=== PATIENT | female | born 1970 | race Asian ===

== ENCOUNTER 2019-09-29 05:42 | Emergency (ER) | payer MEDICAID, OTHER ==
[~2019-09-29] VITALS: Ht 160 cm; Wt 72.7 kg
[2019-09-29] MEDS ORDERED: LISI-662 PO (05:59)
[2019-09-29] MEDS ORDERED: AMLO10TA7 PO (05:59)
[2019-09-29] MEDS ORDERED: CARV12 PO (05:59)
[2019-09-29] MEDS ORDERED: SPIR25 PO (05:59)
[2019-09-29] MEDS ORDERED: GuaiFENesin [SUGAR-FREE] 200 MG/10 ML SOLUTION UDCUP PO ONE (06:45)
[2019-09-29] MEDS ORDERED: ALBUTEROL SULFATE HFA 90 MCG/PUFF 8 GM INHALER IH ONE (06:45)
[2019-09-29] MEDS ORDERED: PredniSONE 20 MG TABLET PO ONE (06:45)
[2019-09-29 08:01] VITALS: BP 167/105
== END 2019-09-29 08:21 | disposition home or self-care (01) ==
LOC: EMS 05:42
DX: J45.909 Unspecified asthma, uncomplicated (principal); M54.9 Dorsalgia, unspecified; E78.00 Pure hypercholesterolemia, unspecified; I10 Essential (primary) hypertension; F17.210 Nicotine dependence, cigarettes, uncomplicated; Z90.49 Acquired absence of other specified parts of digestive tract
CPT/HCPCS: 71046; 81002; 94640; 99283; J7512; J3535

== ENCOUNTER 2023-02-23 10:28 | Inpatient (IN) | payer OTHER ==
[~2023-02-23] VITALS: Ht 157.5 cm; Wt 75.1 kg
[~2023-02-23 10:28] MED LIST: AMLO-258 PO; ASPI325T87 PO; ATOR40TA71 PO; CARV12.530 PO; DOCU100C34 PO; FERR324T23 PO; ISOS30TA92 PO; LEVE500T20 PO; LOSA-381 PO; PANT-31 PO; SPIR-37 PO
[2023-02-23] MEDS ORDERED: ATOR-2 PO (10:34)
[2023-02-23] MEDS ORDERED: CARV25TA32 PO (10:34)
[2023-02-23] MEDS ORDERED: FAMO20TA8 PO (10:34)
[2023-02-23] MEDS ORDERED: VALS320T17 PO (10:34)
[2023-02-23] MEDS ORDERED: ATEN-72 PO (10:34)
[2023-02-23] MEDS ORDERED: LATA2.5D14 OU (10:34)
[2023-02-23 12:08] LABS: BASOPHILS % (AUTO) 0.9 % (0.0-2.0); EOSINOPHILS % (AUTO) 2.4 % (1.0-6.0); HEMATOCRIT 39.2 % (36-46); HEMOGLOBIN 13.4 g/dL (12.0-16.0); LYMPHOCYTES % (AUTO) 19.8 % (22.0-44.0); MEAN CORPUSCULAR HEMOGLOBIN 30.1 pg (26.0-34.0); MEAN CORPUSCULAR HGB CONC 34.2 G/dL (31.0-37.0); MEAN CORPUSCULAR VOLUME 88 fL (80-100); MONOCYTES # (AUTO) 0.8 K/uL (0.1-1.0); MONOCYTES % (AUTO) 7.8 % (2.0-9.0); NEUTROPHILS # (AUTO) 7.1 K/uL (1.8-7.7); NEUTROPHILS % (AUTO) 69.1 % (40.0-70.0); PLATELET COUNT (AUTO) 278 K/uL (150-450); RED BLOOD CELL COUNT(AUTO) 4.44 MIL/uL (4.00-5.20); RED CELL DISTRIBUTION WIDTH 13.2 % (11.5-14.5)
[2023-02-23] MEDS ORDERED: AmLODIPine BESYLATE 10 MG TABLET PO ONE (12:15)
[2023-02-23] MEDS ORDERED: LABETALOL HCL 5 MG/ML 20 ML VIAL IVP ONE (12:15)
[2023-02-23 12:17] LABS: CREATININE 1.68 mg/dL (0.60-1.30); POTASSIUM 3.6 mmol/L (3.5-5.1)
[2023-02-23 12:21] LABS: PROTHROMBIN TIME 10.2 SEC (9.4-11.6)
[2023-02-23 12:47] LABS: ALBUMIN 3.4 g/dL (3.4-5.0); BILIRUBIN,TOTAL 0.6 mg/dL (0.1-1.0)
[2023-02-23] MEDS ORDERED: NITROGLYCERIN 2% (1 GM=INCH) OINTMENT PACKET TP ONE (13:00)
[2023-02-23] MEDS ORDERED: ASPIRIN 325 MG TABLET PO ONE (13:00)
[2023-02-23 14:39] LABS: COVID AG,FIA SOURCE NASOPHARYNGEAL
[2023-02-23 15:24] VITALS: BP 166/101; PULSE 72; RESP 18; TEMP 97.7
[2023-02-23] MEDS ORDERED: MAGNESIUM HYDROXIDE SUSPENSION 30 ML UDCUP PO PRN (17:15)
[2023-02-23] MEDS ORDERED: MORPHINE SULFATE 2 MG/ML SYRINGE IVP PRN (17:15)
[2023-02-23] MEDS ORDERED: HYDROCODONE/ACETAMINOPHEN 5-325 MG TABLET PO PRN (17:15)
[2023-02-23] MEDS ORDERED: HEPARIN SODIUM,PORCINE 5,000 UNITS/ML VIAL IVP ONE ×2 (17:15)
[2023-02-23] MEDS ORDERED: ASPIRIN 81 MG CHEWABLE TABLET PO ONE (17:15)
[2023-02-23] MEDS ORDERED: LABETALOL HCL 5 MG/ML 20 ML VIAL IVP PRN (17:15)
[2023-02-23] MEDS ORDERED: ALBUTEROL SULFATE 2.5 MG/0.5 ML NEB SOLUTION NEB PRN (17:15)
[2023-02-23] MEDS ORDERED: IPRATROPIUM BROMIDE 0.5 MG/2.5 ML NEB SOLUTION NEB PRN (17:15)
[2023-02-23] MEDS ORDERED: HEPARIN SODIUM 25000 UNITS/D5W 250 ML IV PRN (17:15)
[2023-02-23] MEDS ORDERED: HEPARIN SODIUM,PORCINE 5,000 UNITS/ML VIAL IVP PRN ×3 (17:15)
[2023-02-23] MEDS ORDERED: BISACODYL 10 MG RECTAL RECTAL SUPPOSITORY PR PRN (17:15)
[2023-02-23] MEDS ORDERED: ONDANSETRON HCL 4 MG/2 ML VIAL IVP PRN (17:15)
[2023-02-23 19:17] LABS: BASOPHILS % (AUTO) 1.4 % (0.0-2.0); HEMATOCRIT 38.6 % (36-46); HEMOGLOBIN 13.1 g/dL (12.0-16.0); LYMPHOCYTES # (AUTO) 2.8 K/uL (1.0-4.8); LYMPHOCYTES % (AUTO) 23.6 % (22.0-44.0); MEAN CORPUSCULAR HEMOGLOBIN 29.8 pg (26.0-34.0); MEAN CORPUSCULAR HGB CONC 33.9 G/dL (31.0-37.0); MEAN CORPUSCULAR VOLUME 88 fL (80-100); MONOCYTES # (AUTO) 0.8 K/uL (0.1-1.0); NEUTROPHILS # (AUTO) 7.6 K/uL (1.8-7.7); PLATELET COUNT (AUTO) 274 K/uL (150-450); RED BLOOD CELL COUNT(AUTO) 4.38 MIL/uL (4.00-5.20); RED CELL DISTRIBUTION WIDTH 13.4 % (11.5-14.5)
[2023-02-23 19:34] LABS: PROTHROMBIN TIME 10.3 SEC (9.4-11.6)
[2023-02-23 19:36] VITALS: BP 179/102; PULSE 77; RESP 20; TEMP 98.1
[2023-02-23] MEDS: HEPARIN SODIUM 25000 UNITS/D5W 250 ML IV PRN (19:51)
[2023-02-23] MEDS: DOCUSATE SODIUM 100 MG CAPSULE PO SCH (19:57)
[2023-02-23] MEDS: HydrALAZINE HCL 20 MG/ML VIAL IVP PRN (20:00)
[2023-02-23] MEDS: CARVEDILOL 12.5 MG TABLET PO SCH (20:00)
[2023-02-23] MEDS: LATANOPROST 0.005% 2.5 ML OPHTHALMIC SOLUTION OU SCH (20:32)
[2023-02-23] MEDS: FAMOTIDINE 20 MG TABLET PO SCH (20:32)
[2023-02-23] MEDS ORDERED: HydrALAZINE HCL 20 MG/ML VIAL IVP PRN (20:45)
[2023-02-23] MEDS ORDERED: CARVEDILOL 25 MG TABLET PO SCH (21:00)
[2023-02-23 22:20] VITALS: BP 141/81; PULSE 76; RESP 18
[2023-02-24] MEDS ORDERED: HEPARIN SODIUM,PORCINE 5,000 UNITS/ML VIAL SQ SCH
[2023-02-24 00:09] VITALS: BP 141/84; PULSE 74; RESP 18; TEMP 98.1
[2023-02-24 04:27] VITALS: BP 150/82; PULSE 72; RESP 16; TEMP 98.2
[2023-02-24 07:16] VITALS: BP 157/85; PULSE 71; RESP 18; TEMP 98
[2023-02-24 07:25] LABS: BASOPHILS % (AUTO) 0.7 % (0.0-2.0); EOSINOPHILS % (AUTO) 3.4 % (1.0-6.0); HEMATOCRIT 39.2 % (36-46); HEMOGLOBIN 13.2 g/dL (12.0-16.0); LYMPHOCYTES % (AUTO) 25.3 % (22.0-44.0); MEAN CORPUSCULAR HGB CONC 33.8 G/dL (31.0-37.0); MEAN CORPUSCULAR VOLUME 89 fL (80-100); MONOCYTES # (AUTO) 0.8 K/uL (0.1-1.0); MONOCYTES % (AUTO) 6.7 % (2.0-9.0); NEUTROPHILS # (AUTO) 7.7 K/uL (1.8-7.7); NEUTROPHILS % (AUTO) 63.9 % (40.0-70.0); PLATELET COUNT (AUTO) 279 K/uL (150-450); RED BLOOD CELL COUNT(AUTO) 4.41 MIL/uL (4.00-5.20); RED CELL DISTRIBUTION WIDTH 13.5 % (11.5-14.5)
[2023-02-24] MEDS: PANTOPRAZOLE SODIUM 40 MG/VIAL IVP SCH (08:59)
[2023-02-24] MEDS: SPIRONOLACTONE 25 MG TABLET PO SCH (08:59)
[2023-02-24] MEDS: ATORVASTATIN CALCIUM 40 MG TABLET PO SCH (08:59)
[2023-02-24] MEDS: DOCUSATE SODIUM 100 MG CAPSULE PO SCH ×2 (09:00→20:29)
[2023-02-24] MEDS: CARVEDILOL 12.5 MG TABLET PO SCH ×2 (09:00→20:29)
[2023-02-24] MEDS: FAMOTIDINE 20 MG TABLET PO SCH ×2 (09:00→20:29)
[2023-02-24] MEDS ORDERED: ATORVASTATIN CALCIUM 40 MG TABLET PO SCH (09:00)
[2023-02-24 11:23] VITALS: BP 166/102; PULSE 71; RESP 18; TEMP 97.7
[2023-02-24] MEDS ORDERED: METOPROLOL TARTRATE 25 MG TABLET PO ONE (12:00)
[2023-02-24] MEDS ORDERED: ASPIRIN 81 MG CHEWABLE TABLET PO ONE (12:00)
[2023-02-24 15:56] VITALS: BP 139/78; PULSE 66; RESP 19; TEMP 98.2
[2023-02-24] MEDS: HEPARIN SODIUM 25000 UNITS/D5W 250 ML IV PRN (19:09)
[2023-02-24 19:21] VITALS: BP 160/97; PULSE 73; RESP 19; TEMP 98
[2023-02-24] MEDS: LATANOPROST 0.005% 2.5 ML OPHTHALMIC SOLUTION OU SCH (20:31)
[2023-02-24] MEDS ORDERED: METOPROLOL TARTRATE 25 MG TABLET PO SCH (21:00)
[2023-02-25] VITALS (10 sets, daily range): BP systolic 134–199; BP diastolic 74–115; PULSE 66–81; RESP 16–20; TEMP 97.9–98.7
[2023-02-25] MEDS: HydrALAZINE HCL 20 MG/ML VIAL IVP PRN (04:31)
[2023-02-25] MEDS: ACETAMINOPHEN 325 MG TABLET PO PRN (09:09)
[2023-02-25] MEDS: ASPIRIN 81 MG CHEWABLE TABLET PO SCH (09:09)
[2023-02-25] MEDS: ATORVASTATIN CALCIUM 40 MG TABLET PO SCH (09:09)
[2023-02-25] MEDS: DOCUSATE SODIUM 100 MG CAPSULE PO SCH ×2 (09:10→20:26)
[2023-02-25] MEDS: FAMOTIDINE 20 MG TABLET PO SCH ×2 (09:10→20:26)
[2023-02-25] MEDS: SPIRONOLACTONE 25 MG TABLET PO SCH (09:10)
[2023-02-25] MEDS: CARVEDILOL 12.5 MG TABLET PO SCH ×2 (09:10→20:26)
[2023-02-25] MEDS: AMILoride HCL 5 MG TABLET PO SCH (09:53)
[2023-02-25] MEDS: PANTOPRAZOLE SODIUM 40 MG/VIAL IVP SCH (09:54)
[2023-02-25 12:33] LABS: BASOPHILS % (AUTO) 1.1 % (0.0-2.0); HEMATOCRIT 40.9 % (36-46); HEMOGLOBIN 13.5 g/dL (12.0-16.0); LYMPHOCYTES # (AUTO) 2.4 K/uL (1.0-4.8); LYMPHOCYTES % (AUTO) 20.3 % (22.0-44.0); MEAN CORPUSCULAR HEMOGLOBIN 29.5 pg (26.0-34.0); MEAN CORPUSCULAR VOLUME 90 fL (80-100); MONOCYTES # (AUTO) 0.9 K/uL (0.1-1.0); MONOCYTES % (AUTO) 7.4 % (2.0-9.0); NEUTROPHILS # (AUTO) 8.1 K/uL (1.8-7.7); NEUTROPHILS % (AUTO) 68.2 % (40.0-70.0); PLATELET COUNT (AUTO) 288 K/uL (150-450); RED BLOOD CELL COUNT(AUTO) 4.56 MIL/uL (4.00-5.20); RED CELL DISTRIBUTION WIDTH 13.7 % (11.5-14.5)
[2023-02-25 12:42] LABS: CALCIUM, TOTAL 9.2 mg/dL (8.8-10.5); CREATININE 1.88 mg/dL (0.60-1.30); POTASSIUM 3.7 mmol/L (3.5-5.1)
[2023-02-25 12:48] LABS: ALBUMIN 3.3 g/dL (3.4-5.0); BILIRUBIN,TOTAL 0.3 mg/dL (0.1-1.0); TOTAL PROTEIN, SERUM 6.9 g/dL (6.4-8.2)
[2023-02-25] MEDS: LATANOPROST 0.005% 2.5 ML OPHTHALMIC SOLUTION OU SCH (20:27)
[2023-02-25] MEDS: HEPARIN SODIUM 25000 UNITS/D5W 250 ML IV PRN (20:58)
[2023-02-25 21:00] LABS: APPEARANCE,URINE HAZY (CLEAR); BILIRUBIN,URINE NEGATIVE (NEGATIVE); GLUCOSE, URINE (UA) NEGATIVE (NEGATIVE); KETONES,URINE NEGATIVE (NEGATIVE); LEUKOCYTE ESTERASE ,URINE MODERATE (NEGATIVE); NITRATE,URINE NEGATIVE (NEGATIVE); OCCULT BLOOD,URINE NEGATIVE (NEGATIVE); PROTEIN,URINE 100-200,SEE CONFIRM mg/dL (NEGATIVE); SPECIFIC GRAVITIY, URINE 1.016 (1.003-1.030); UROBILINOGEN,URINE <=1.0 mg/dL (<=1.0)
[2023-02-25 21:27] LABS: BACTERIA,URINE Few /HPF (None Seen); RBC,URINE None Seen /HPF (0-2); SQUAMOUS EPITHELIAL CELL,UR Moderate /LPF (None Seen); SULFOSALICYLIC ACID,URINE 1+ (Negative)
[2023-02-26 00:33] VITALS: BP 176/100; PULSE 68; RESP 20; TEMP 98.2
[2023-02-26] MEDS: HydrALAZINE HCL 20 MG/ML VIAL IVP PRN ×2 (00:37→12:33)
[2023-02-26] MEDS: ZOLPIDEM TARTRATE 5 MG TABLET PO PRN (00:37)
[2023-02-26] MEDS: ACETAMINOPHEN 325 MG TABLET PO PRN (03:06)
[2023-02-26 03:43] VITALS: BP 133/93; PULSE 84; RESP 20; TEMP 97.9
[2023-02-26 06:09] LABS: BASOPHILS % (AUTO) 0.9 % (0.0-2.0); EOSINOPHILS % (AUTO) 3.2 % (1.0-6.0); HEMATOCRIT 43.5 % (36-46); HEMOGLOBIN 14.2 g/dL (12.0-16.0); LYMPHOCYTES # (AUTO) 3.1 K/uL (1.0-4.8); LYMPHOCYTES % (AUTO) 24.7 % (22.0-44.0); MEAN CORPUSCULAR HEMOGLOBIN 29.4 pg (26.0-34.0); MEAN CORPUSCULAR HGB CONC 32.6 G/dL (31.0-37.0); MEAN CORPUSCULAR VOLUME 90 fL (80-100); MONOCYTES # (AUTO) 1.4 K/uL (0.1-1.0); MONOCYTES % (AUTO) 10.8 % (2.0-9.0); NEUTROPHILS # (AUTO) 7.6 K/uL (1.8-7.7); NEUTROPHILS % (AUTO) 60.4 % (40.0-70.0); PLATELET COUNT (AUTO) 282 K/uL (150-450); RED BLOOD CELL COUNT(AUTO) 4.81 MIL/uL (4.00-5.20)
[2023-02-26] MEDS: HEPARIN SODIUM,PORCINE 5,000 UNITS/ML VIAL IVP PRN ×2 (07:25→21:25)
[2023-02-26 07:52] VITALS: BP 156/99; PULSE 76; RESP 18; TEMP 98
[2023-02-26] MEDS: DOCUSATE SODIUM 100 MG CAPSULE PO SCH ×2 (09:00→20:18)
[2023-02-26] MEDS: FAMOTIDINE 20 MG TABLET PO SCH ×2 (09:47→20:18)
[2023-02-26] MEDS: ATORVASTATIN CALCIUM 40 MG TABLET PO SCH (09:47)
[2023-02-26] MEDS: ASPIRIN 81 MG CHEWABLE TABLET PO SCH (09:47)
[2023-02-26] MEDS: SPIRONOLACTONE 25 MG TABLET PO SCH (09:47)
[2023-02-26] MEDS: AMILoride HCL 5 MG TABLET PO SCH (09:48)
[2023-02-26] MEDS: PANTOPRAZOLE SODIUM 40 MG/VIAL IVP SCH (09:48)
[2023-02-26] MEDS: CARVEDILOL 12.5 MG TABLET PO SCH ×2 (09:50→20:18)
[2023-02-26 12:00] VITALS: BP 178/82; PULSE 70; RESP 18; TEMP 98
[2023-02-26] MEDS ORDERED: AmLODIPine BESYLATE 10 MG TABLET PO ONE (13:30)
[2023-02-26 15:16] VITALS: BP 156/92; PULSE 72; RESP 18; TEMP 98
[2023-02-26 20:15] VITALS: BP 188/115; PULSE 76; RESP 18; TEMP 97.7
[2023-02-26] MEDS: LATANOPROST 0.005% 2.5 ML OPHTHALMIC SOLUTION OU SCH (20:18)
[2023-02-26] MEDS: HEPARIN SODIUM 25000 UNITS/D5W 250 ML IV PRN (21:31)
[2023-02-27] VITALS (8 sets, daily range): BP systolic 128–172; BP diastolic 77–101; PULSE 65–82; RESP 17–19; TEMP 97.8–98.4
[2023-02-27] MEDS: ACETAMINOPHEN 325 MG TABLET PO PRN (02:33)
[2023-02-27 04:21] LABS: BASOPHILS % (AUTO) 1.7 % (0.0-2.0); EOSINOPHILS % (AUTO) 2.1 % (1.0-6.0); HEMATOCRIT 42.1 % (36-46); LYMPHOCYTES % (AUTO) 24.9 % (22.0-44.0); MEAN CORPUSCULAR HEMOGLOBIN 29.9 pg (26.0-34.0); MEAN CORPUSCULAR HGB CONC 33.2 G/dL (31.0-37.0); MEAN CORPUSCULAR VOLUME 90 fL (80-100); MONOCYTES # (AUTO) 0.9 K/uL (0.1-1.0); NEUTROPHILS # (AUTO) 7.9 K/uL (1.8-7.7); NEUTROPHILS % (AUTO) 64.3 % (40.0-70.0); PLATELET COUNT (AUTO) 301 K/uL (150-450); RED BLOOD CELL COUNT(AUTO) 4.68 MIL/uL (4.00-5.20); RED CELL DISTRIBUTION WIDTH 13.6 % (11.5-14.5)
[2023-02-27 04:30] LABS: CALCIUM, TOTAL 9.5 mg/dL (8.8-10.5); CREATININE 2.1 mg/dL (0.60-1.30); POTASSIUM 4.7 mmol/L (3.5-5.1)
[2023-02-27] MEDS: HEPARIN SODIUM 25000 UNITS/D5W 250 ML IV PRN (05:00)
[2023-02-27] MEDS: ATORVASTATIN CALCIUM 40 MG TABLET PO SCH (08:09)
[2023-02-27] MEDS: DOCUSATE SODIUM 100 MG CAPSULE PO SCH ×2 (08:09→20:19)
[2023-02-27] MEDS: ASPIRIN 81 MG CHEWABLE TABLET PO SCH (08:09)
[2023-02-27] MEDS: PANTOPRAZOLE SODIUM 40 MG/VIAL IVP SCH (08:09)
[2023-02-27] MEDS: FAMOTIDINE 20 MG TABLET PO SCH ×2 (08:09→20:18)
[2023-02-27] MEDS: AmLODIPine BESYLATE 10 MG TABLET PO SCH (08:09)
[2023-02-27] MEDS: CARVEDILOL 12.5 MG TABLET PO SCH ×2 (08:10→20:19)
[2023-02-27] MEDS: SPIRONOLACTONE 25 MG TABLET PO SCH (08:17)
[2023-02-27 20:14] LABS: CALCIUM, TOTAL 8.8 mg/dL (8.8-10.5); CREATININE 2.31 mg/dL (0.60-1.30); POTASSIUM 4.9 mmol/L (3.5-5.1)
[2023-02-27] MEDS: LATANOPROST 0.005% 2.5 ML OPHTHALMIC SOLUTION OU SCH (20:20)
[2023-02-27] MEDS: ZOLPIDEM TARTRATE 5 MG TABLET PO PRN (22:58)
[2023-02-28 05:27] VITALS: BP 122/78; PULSE 68; RESP 18; TEMP 98.4
[2023-02-28 07:47] VITALS: BP 159/82; PULSE 72; RESP 19; TEMP 97.9
[2023-02-28] MEDS: DOCUSATE SODIUM 100 MG CAPSULE PO SCH (08:24)
[2023-02-28] MEDS: ATORVASTATIN CALCIUM 40 MG TABLET PO SCH (08:24)
[2023-02-28] MEDS: FAMOTIDINE 20 MG TABLET PO SCH (08:24)
[2023-02-28] MEDS: AmLODIPine BESYLATE 10 MG TABLET PO SCH (08:24)
[2023-02-28] MEDS: SPIRONOLACTONE 25 MG TABLET PO SCH (08:25)
[2023-02-28] MEDS: ASPIRIN 81 MG CHEWABLE TABLET PO SCH (08:25)
[2023-02-28] MEDS: PANTOPRAZOLE SODIUM 40 MG/VIAL IVP SCH (08:26)
[2023-02-28] MEDS: CARVEDILOL 12.5 MG TABLET PO SCH (08:26)
[2023-02-28 10:00] LABS: BASOPHILS % (AUTO) 0.9 % (0.0-2.0); EOSINOPHILS % (AUTO) 3.9 % (1.0-6.0); HEMATOCRIT 39.6 % (36-46); LYMPHOCYTES # (AUTO) 2.3 K/uL (1.0-4.8); LYMPHOCYTES % (AUTO) 22.4 % (22.0-44.0); MEAN CORPUSCULAR HEMOGLOBIN 29.9 pg (26.0-34.0); MEAN CORPUSCULAR HGB CONC 32.8 G/dL (31.0-37.0); MEAN CORPUSCULAR VOLUME 91 fL (80-100); MONOCYTES % (AUTO) 9.7 % (2.0-9.0); NEUTROPHILS # (AUTO) 6.4 K/uL (1.8-7.7); NEUTROPHILS % (AUTO) 63.1 % (40.0-70.0); PLATELET COUNT (AUTO) 276 K/uL (150-450); RED BLOOD CELL COUNT(AUTO) 4.35 MIL/uL (4.00-5.20); RED CELL DISTRIBUTION WIDTH 13.7 % (11.5-14.5)
[2023-02-28 11:12] LABS: CALCIUM, TOTAL 8.9 mg/dL (8.8-10.5); CREATININE 2.15 mg/dL (0.60-1.30); POTASSIUM 5.2 mmol/L (3.5-5.1)
[2023-02-28 11:18] LABS: ALBUMIN 3.3 g/dL (3.4-5.0); BILIRUBIN,TOTAL 0.3 mg/dL (0.1-1.0); TOTAL PROTEIN, SERUM 6.8 g/dL (6.4-8.2)
[2023-02-28 11:52] VITALS: BP 136/83; PULSE 62; RESP 19; TEMP 97.4
[2023-02-28] MEDS ORDERED: CARV25 PO (11:57)
[2023-02-28] MEDS ORDERED: HYDR25TA84 PO (11:57)
[2023-02-28] MEDS ORDERED: ATOR40TA71 PO (11:57)
[2023-02-28] MEDS ORDERED: AMLO-258 PO (11:57)
[2023-02-28] MEDS ORDERED: ASPI81 PO (11:57)
[2023-02-28] MEDS ORDERED: SODIUM ZIRCONIUM CYCLOSILICATE 5 GM POWDER PACKET PO ONE (12:00)
[2023-02-28] MEDS ORDERED: HydrALAZINE HCL 25 MG TABLET PO SCH (21:00)
== END 2023-02-28 14:30 | disposition home or self-care (01) | DRG 199 ==
LOC: EMS 10:29 → 5S 13:41
PROVIDERS: ADMIT Hospitalist; ATTEND Hospitalist
DX: I16.1 Hypertensive emergency (principal); I21.4 Non-ST elevation (NSTEMI) myocardial infarction; N17.9 Acute kidney failure, unspecified; D72.829 Elevated white blood cell count, unspecified; E78.00 Pure hypercholesterolemia, unspecified; F32.A Depression, unspecified; Z20.822 Contact with and (suspected) exposure to COVID-19; H40.9 Unspecified glaucoma; J45.909 Unspecified asthma, uncomplicated; I12.9 Hypertensive chronic kidney disease with stage 1 through stage 4 chronic kidney disease, or unspecified chronic kidney disease; N18.9 Chronic kidney disease, unspecified; Z86.73 Personal history of transient ischemic attack (TIA), and cerebral infarction without residual deficits; Z90.49 Acquired absence of other specified parts of digestive tract; Z91.148 Patient's other noncompliance with medication regimen for other reason
CPT/HCPCS: 70450; 71045; 76770; 80048; 80053; 81001; 81002; 82550; 83880; 84484; 85025; 85610; 85730; 87086; 87186; 93005; 93306; 99291; C9113; J0360; J1644; J2270; J3490; Q9967; 36415-L1; 36415-TC

== ENCOUNTER 2023-03-03 15:42 | Emergency (ER) | payer OTHER ==
[~2023-03-03] VITALS: Ht 157.5 cm; Wt 72.7 kg
[~2023-03-03 15:42] MED LIST changes: -ASPI325T87 PO; +ASPI81 PO; -CARV12.530 PO; +CARV25 PO; +CARV25TA32 PO; -DOCU100C34 PO; +FAMO20TA8 PO; -FERR324T23 PO; +HYDR25TA84 PO; -ISOS30TA92 PO; +LATA2.5D14 OU; -LEVE500T20 PO; -LOSA-381 PO; -PANT-31 PO; -SPIR-37 PO; +VALS320T17 PO
[2023-03-03 15:48] VITALS: TEMP 98.6
[2023-03-03] MEDS ORDERED: SODIUM CHLORIDE 0.9% 1,000 ML IV ONE (16:45)
[2023-03-03 16:54] LABS: BASOPHILS % (AUTO) 0.9 % (0.0-2.0); EOSINOPHILS % (AUTO) 3.9 % (1.0-6.0); HEMATOCRIT 38.4 % (36-46); HEMOGLOBIN 12.5 g/dL (12.0-16.0); LYMPHOCYTES # (AUTO) 2.2 K/uL (1.0-4.8); LYMPHOCYTES % (AUTO) 23.6 % (22.0-44.0); MEAN CORPUSCULAR HEMOGLOBIN 29.5 pg (26.0-34.0); MEAN CORPUSCULAR HGB CONC 32.4 G/dL (31.0-37.0); MEAN CORPUSCULAR VOLUME 91 fL (80-100); MONOCYTES # (AUTO) 0.9 K/uL (0.1-1.0); MONOCYTES % (AUTO) 9.8 % (2.0-9.0); NEUTROPHILS # (AUTO) 5.7 K/uL (1.8-7.7); NEUTROPHILS % (AUTO) 61.8 % (40.0-70.0); PLATELET COUNT (AUTO) 290 K/uL (150-450); RED BLOOD CELL COUNT(AUTO) 4.22 MIL/uL (4.00-5.20); RED CELL DISTRIBUTION WIDTH 13.8 % (11.5-14.5)
[2023-03-03 17:12] LABS: CALCIUM, TOTAL 9.1 mg/dL (8.8-10.5); CREATININE 2.35 mg/dL (0.60-1.30); POTASSIUM 5.8 mmol/L (3.5-5.1)
[2023-03-03] MEDS ORDERED: SODI5POW3 PO (18:10)
[2023-03-03] MEDS ORDERED: SODIUM ZIRCONIUM CYCLOSILICATE 5 GM POWDER PACKET PO ONE (18:15)
[2023-03-03 19:41] VITALS: BP 146/90; PULSE 65; RESP 16
== END 2023-03-03 21:46 | disposition home or self-care (01) ==
LOC: EMS 15:42
DX: E87.5 Hyperkalemia (principal); R42 Dizziness and giddiness; J45.909 Unspecified asthma, uncomplicated; F32.A Depression, unspecified; E78.00 Pure hypercholesterolemia, unspecified; I10 Essential (primary) hypertension; Z90.49 Acquired absence of other specified parts of digestive tract
CPT/HCPCS: 99284; 96360; 80048; 85025; 36415; 93005; Q9967; J7030